=== PATIENT | female | born 1955 | race Caucasian/White ===

== ENCOUNTER 2019-05-05 08:58 | Inpatient (IN) | payer MEDICAID ==
[~2019-05-05] VITALS: Ht 154.9 cm; Wt 71.2 kg
[2019-05-05 08:59] VITALS: BP 174/76
--- NOTE | 2019-05-05 09:05 | NUR ---
Patient ambulated to bed 5 with family. RN evaluating patient at bedside.
--- NOTE | 2019-05-05 09:11 | NUR ---
EKG completed at bedside by EMT.
--- NOTE | 2019-05-05 09:14 | NUR ---
PT BIB SON WITH C/O CHEST PAIN X THIS AM. STATES PAIN RADIATING TO BACK, PAIN 10/10 AT THIS TIME. PT AA0X4. +BLURRY VISION, +NAUSEA, HAS DIFFICULTY IN BREATHING. PUT THE PT ON THE MONITOR, PUT ON O2 2L VIA NC. O2 SAT 100% AT THIS TIME, BS 185. ER MD TO SEE THE PT. EKG DONE AT THE BEDISE. PMH- DM, HTN. DENIES ANY ALLERGU TO MEDS
--- NOTE | 2019-05-05 09:23 | NUR ---
SELMA LERMA AT THE BEDSIDE ASSESSING PT.
[2019-05-05] MEDS ORDERED: ASPIRIN 325 MG TAB PO ONE (09:30)
[2019-05-05] MEDS: NITROGLYCERIN 0.4 MG TAB SL PRN ×3 (09:40→10:09)
[2019-05-05 09:44] LABS: BASOPHILS % (AUTO) 0.6 % (0.0-2.0); EOSINOPHILS % (AUTO) 0.3 % (0.0-4.0); HEMATOCRIT 42.9 % (36-48); HEMOGLOBIN 14.3 g/dL (12.0-16.0); LYMPHOCYTES # (AUTO) 1.3 K/uL (2.5-16.5); LYMPHOCYTES % (AUTO) 20.9 % (20.5-51.1); MEAN CORPUSCULAR HEMOGLOBIN 31 pg (27-31); MEAN CORPUSCULAR HGB CONC 33 g/dL (33-37); MEAN CORPUSCULAR VOLUME 91.7 fL (80-94); MONOCYTES # (AUTO) 0.3 K/uL (0.8-1.0); MONOCYTES % (AUTO) 4.6 % (1.7-9.3); NEUTROPHILS # (AUTO) 4.6 K/uL (1.8-7.7); NEUTROPHILS % (AUTO) 73.6 % (42.2-75.2); PLATELET COUNT (AUTO) 241 K/uL (140-450); RED BLOOD CELL COUNT(AUTO) 4.68 MIL/uL (4.20-5.40); RED CELL DISTRIBUTION WIDTH 13.5 % (11.6-13.7); WHITE BLOOD COUNT (AUTO) 6.2 K/uL (4.8-10.8)
[2019-05-05 09:50] LABS: ANION GAP 16.1 (8-16); CARBON DIOXIDE 27.2 mmol/L (21-32); CREATININE 0.7 mg/dL (0.6-1.3); POTASSIUM 4.3 mmol/L (3.5-5.1)
[2019-05-05 09:56] LABS: ALBUMIN 4.1 g/dL (3.4-5.0); TOTAL BILIRUBIN 0.5 mg/dL (0.0-1.0)
--- NOTE | 2019-05-05 09:59 | NUR ---
ADMINISTERED SECOND DOSE OF NNITROGLYCERINE ORDEREDE. PT HAS CHEST PAINJ 8/10 AT THIS TIME.
--- NOTE | 2019-05-05 10:00 | NUR ---
PT SON INFORMED OF PTS MED THAT ARE TAKEN AT HOME. FATHER TO BRING THE HOPME MEDS.
--- NOTE | 2019-05-05 10:09 | NUR ---
GAVE THIRD DOSE OF NITROGLYCERINE, PAIN 5/10 AT THIS TIME.
[2019-05-05] MEDS ORDERED: CLOPIDOGREL 75 MG TAB PO ONE (10:25)
[2019-05-05] MEDS ORDERED: ENOXAPARIN 60 MG/0.6 ML SYR SUBQ ONE (10:25)
[2019-05-05] MEDS ORDERED: HYDROcodone/APAP 5/325 MG 1 TAB TAB PO PRN (10:35)
[2019-05-05] MEDS ORDERED: ONDANSETRON 4 MG/2 ML VIAL IM/IVP PRN (10:35)
[2019-05-05] MEDS ORDERED: MORPHINE SULFATE 2 MG/ML SYR IVP PRN (10:35)
[2019-05-05] MEDS ORDERED: ACETAMINOPHEN 325 MG TAB PO PRN (10:35)
[2019-05-05 11:05] VITALS: BP 155/68
[2019-05-05] MEDS ORDERED: NITROGLYCERIN 0.4 MG TAB SL PRN (11:05)
--- NOTE | 2019-05-05 11:05 | NUR ---
PATIENT ARRIVED ON UNIT VIA GURNEY ACCOMPANIED BY ER NURSE AND FAMILY. PATIENT IS AAOX4, SPEAKS CYMRO AND ABLE TO UNDERSTAND MINIMAL MOHAWK. PATIENT IS ABLE TO MAKE NEED KNOWS AND FOLLOW SIMPLE COMMANDS. PATIENT IS VERY COOPERATIVE. RESPIRATION EVEN AND UNLABORED ON RA. DENIES ANY PAIN AND SOB AT THIS TIME. NO SIGNS OF DISTRESS NOTED. IV ON RAC 20G, CLEAN AND INTACT, SL. SKIN INTACT AND CLEAN. PATIENT IS ABLE TO AMBULATE WITH STEADY GAIT AND CONTINENT. ORIENTED PATIENT AND FAMILY TO THE ROOM. INSTRUCTED PATIENT AND FAMILY ON HOW TO USE THE CALL LIGHT, BED REMOTE, TELEPHONE, BATHROOM, LIGHT AND TV. ALL VERBALIZED UNDERSTANDING. DISCUSSED PLAN OF CARE WITH PATIENT AND FAMILY AT BEDSIDE, ALL VERBALIZED OK. COLLECTED MRSA NARES AND VITAL SIGNS TAKEN. TELE MONITOR APPLIED. SAFETY MEASURES IN PLACE. BED IN LOW POSITION AND CALL LIGHT WITHIN REACH. INSTRUCTED PATIENT AND FAMILY TO USE THE CALL LIGHT FOR ANY ASSISTANCE AND ALL WAS AWARE.
--- NOTE | 2019-05-05 11:05 | NUR ---
Patient will be admitted to care of . Admited to [facility] FLOOR. . Will go to room 106 A. Belongings list completed. Report to ANTHONY REYES .
[2019-05-05] MEDS: NACL 0.9% 1,000 ML IV SCH (11:11)
[2019-05-05 11:12] LABS: PROTHROMBIN TIME 9.9 secs (10.8-13.4)
[2019-05-05] MEDS ORDERED: HEPARIN PER PHARMACY MC PRN (11:15)
[2019-05-05] MEDS ORDERED: hePARIN / DEXT 5% PREMIX 250 ML IV SCH ×2 (11:15→23:00)
[2019-05-05 11:27] LABS: MAGNESIUM 1.6 mg/dL (1.8-2.4); PHOSPHORUS 2.7 mg/dL (2.5-4.9); THYROID STIMULATING HORMONE 6.36 uIU/mL (0.34-3.74)
[2019-05-05] MEDS ORDERED: LOSARTAN 25 MG TAB PO SCH (11:30)
--- NOTE | 2019-05-05 11:40 | NUR ---
DR AVENDANO IS ASSESSING PATIENT AT BEDSIDE. NO SIGNS OF DISTRESS NOTED. SAFETY MEASURES IN PLACE. BED IN LOW POSITION AND CALL LIGHT WITHIN REACH.
--- NOTE | 2019-05-05 12:01 | NUR ---
COLLECTED MRSA NARES AND URINE VIA VOID AND DELIVERED TO LAB.
[2019-05-05] MEDS ORDERED: MAG SULF 2000 MG/WATER PREMIX 50 ML IV SCH (13:00)
--- NOTE | 2019-05-05 13:10 | NUR ---
ADMINISTERED MG PER MD ORDER, PATIENT'S MG LEVEL 1.6, PATIENT TOLERATED WELL. PATIENT IS AWAKE AND TALKING TO THE BED B PATIENT. DENIED PAIN AND SOB. NO SIGNS OF DISTRESS NOTED. SAFETY MEASURES IN PLACE. TELE MONITOR ATTACHED. BED IN LOW POSITION AND CALL LIGHT WITHIN REACH. INSTRUCTED PATIENT TO USE THE CALL LIGHT FOR ANY ASSISTANCE AND PATIENT WAS AWARE.
[2019-05-05] MEDS ORDERED: ALBUTEROL SULFATE/IPRATROPIU 3 ML SOL IH PRN ×2 (13:50→15:35)
[2019-05-05] MEDS ORDERED: LORazepam 2 MG/ML VIAL IM/IVP PRN (13:50)
[2019-05-05 14:05] LABS: APPEARANCE,URINE HAZY (CLEAR); BILIRUBIN,URINE NEGATIVE (NEGATIVE); BLOOD, URINE NEGATIVE (NEGATIVE); COLOR,URINE YELLOW (YELLOW); LEUKOCYTE ESTERASE ,URINE NEGATIVE (NEGATIVE); NITRITE, URINE POSITIVE (NEGATIVE); PH,URINE 5.5 (5.0-9.0); UGLUCOSE NEGATIVE (NEGATIVE)
[2019-05-05 14:14] LABS: BARBITURATE, URINE NEG. ng/ml (NEG <=200); BENZODIAZEPINE, URINE NEG. ng/mL (NEG <=200); CANNABINOID, URINE NEG. ng/mL (NEG <=50); COCAINE, URINE NEG. ng/mL (NEG <=300); OPIATE, URINE NEG. ng/mL (NEG <=2000); PHENCYCLIDINE SCREEN,URINE NEG. ng/mL (NEG <=25)
[2019-05-05] MEDS ORDERED: FOLIC ACID 1 MG TAB PO SCH (14:23)
[2019-05-05] MEDS ORDERED: THIAMINE 200 MG/2 ML VIAL IM SCH (14:24)
[2019-05-05 14:28] LABS: RBC,URINE 0-5 /HPF (0-5); WBC,URINE 0-5 /HPF (0-5)
[2019-05-05] MEDS ORDERED: MULTIVITAMIN 1 TAB PO SCH ×2 (14:30)
--- NOTE | 2019-05-05 15:28 | NUR ---
REVIEWED PATIENT ASSESSMENT FOR BREATHING HHN THERAPY AND SUPPLEMENTAL OXYGEN WITH DR. Jayden AVENDANO SATURATION 98% ON ROOM AIR BPM 20 BREATHS SOUNDS CLEAR BILATERAL WITH EQUAL CHEST RISE PATIENT THROUGH PELLETIZER TENDER STATES THAT SHE USES AN ALBUTEROL INHALER AT HOME 2 PUFF IN AM AND PRN FOR SOB THROUGHOUT DAY/NIGHT
[2019-05-05 16:00] VITALS: BP 149/63
--- NOTE | 2019-05-05 16:15 | NUR ---
PATIENT COMPLAINED SHE HAS 5/10 PAIN AROUND HER ABDOMEN AREA, ADMINISTERED PRN PAIN MED NORCO, PATIENT TOLERATED WELL. PATIENT IS RESTING ON BED AT THIS TIME. NO SIGNS OF DISTRESS NOTED. SAFETY MEASURES IN PLACE. TELE MONITOR ATTACHED. BED IN LOW POSITION AND CALL LIGHT WITHIN REACH. INSTRUCTED PATIENT TO USE THE CALL LIGHT FOR ANY ASSISTANCE AND PATIENT WAS AWARE.
--- NOTE | 2019-05-05 16:50 | NUR ---
PATIENT IS TALKING TO MARGARITA GONZALEZ AT BEDSIDE. NO SIGNS OF DISTRESS NOTED. SAFETY MEASURES IN PLACE. TELE MONITOR ATTACHED. BED IN LOW POSITION AND CALL LIGHT WITHIN REACH. INSTRUCTED PATIENT TO USE THE CALL LIGHT FOR ANY ASSISTANCE AND PATIENT WAS AWARE. Addendum: 05/05/19 at 1736 by Mayda Bettencourt RN MARGARITA PEREZ
[2019-05-05] MEDS: chlordiazePOXIDE 25 MG CAP PO SCH (17:15)
--- NOTE | 2019-05-05 17:17 | NUR ---
ADMINISTERED MED PER MD ORDER, PATIENT TOLERATED WELL. MEDICATION EDUCATION PROVIDED TO PATIENT AND DAUGHTER CARLOS AT BEDSIDE. NO SIGNS OF DISTRESS NOTED. SAFETY MEASURES IN PLACE. TELE MONITOR ATTACHED. BED IN LOW POSITION AND CALL LIGHT WITHIN REACH. INSTRUCTED PATIENT TO USE THE CALL LIGHT FOR ANY ASSISTANCE AND PATIENT WAS AWARE.
--- NOTE | 2019-05-05 17:55 | NUR ---
RECEIVED CRITICAL LAB FOR TROPONIN 0.738. NOTIFIED DR OLIVEIRA AND DR OLIVEIRA WAS AWARE OF CRITICAL LAB VALUE OF TROPONIN. NO ORDER RECEIVED.
--- NOTE | 2019-05-05 19:07 | NUR ---
ENDORSED PATIENT TO ROLL HANDLER NURSE FOR CONTINUITY OF CARE. PATIENT IS IN STABLE CONDITION. SAFETY MEASURES IN PLACE. TELE MONITOR ATTACHED. BED IN LOW POSITION AND CALL LIGHT WITHIN REACH.
--- NOTE | 2019-05-05 19:09 | NUR ---
RECEIVED REPORT FROM AMY RN DAYSHIFT NURSE AT BEDSIDE FOR CONTINUITY OF CARE, PT IN STABLE CONDITION.
[2019-05-05] MEDS: ALBUTEROL SULFATE/IPRATROPIU 3 ML SOL IH SCH (19:21)
[2019-05-05] MEDS ORDERED: ALBUTEROL 0.083% 2.5 MG/3 ML NEBU INH SCH (19:30)
--- NOTE | 2019-05-05 19:30 | NUR ---
PT TAKING NEBULIZER TREATMENT.
[2019-05-05 20:00] VITALS: BP 124/55
[2019-05-05] MEDS: SIMVASTATIN 20 MG TAB PO SCH (20:44)
--- NOTE | 2019-05-05 21:00 | NUR ---
PT IN LOW BED WITH SIDE RAILS UP X2. HER BREATHING IS EVEN AND UNLABORED AND NO C/O OF PAIN VOICED BY PT. V/S FOLLOWS T 97.0 P 69 R 158 B/P 128/55 02 96% ON ROOM AIR. PT LUNGS CLEAR AND ABDOMEN SOFT. PT GIVEN ORDERED ZOCOR FOR HLD. VISITING FAMILY SAID THAT THEY HAD BEEN SPEAKING WITH PT REGARDING HER DAILY CRYING SPELLS AND IS ASKING WHAT THE PROCEDURE IS FOR GETTING ON A ANTI DEPRESSANT. WILL SPEAK WITH RESIDENT MD CONCERNING HER REQUEST.
--- NOTE | 2019-05-05 21:15 | NUR ---
MD ALVAREZ WENT TO PT BEDSIDE AND USING NIB INSPECTOR SYSTEM [employer] VIA TUBE COVERER MD BUNNY SPOKE WITH PT REGARDING HER CONCERNS WELL RISKS BENEFITS AND SIDE EFFECTS OF AN ANT DEPRESSANT. PT VERBALIZED UNDERSTANDING. MD FRITZ SAID THAT SHE WILL ORDER A MILD ANTI DEPRESSANT. AND ASKED THAT SHE WOULD FOLLOW UP OUT PATENT.
[2019-05-06] VITALS: BP 136/58
--- NOTE | 2019-05-06 00:30 | NUR ---
PT IN BED , SHE WAS REPOSITIONED IN BED. PT GIVEN HEPARIN BOLUS 4300 UNITS PER ORDER. PT ALSO STARTED ON HEPARIN GTT AT 850 UNITS PER ORDER. MEDICATION CO SIGNED BY GATE GUARDANTHONY HERNANDEZ. V/S FOLLOWS T 97.7 P 60 R 18 B/P 136/58 02 02 97% ON ROOM AIR. WILL ORDER LAB WORK TO REDRAW THE PT AND PTT. PT DENIES PAIN.
--- NOTE | 2019-05-06 03:03 | NUR ---
SPOKE WITH MD PALACIOS TO ADD FINGERSTICKS AND S/S DUE TO PT HAVING DM2 FINGERSTICK WAS TAKEN AND IT WAS 192, PT GIVEN 2 UNITS HUMALOG PER S/S.
[2019-05-06] MEDS: INSULIN LISPRO SLIDING SCALE 100 UNITS/ML VIAL SUBQ PRN ×4 (03:08→20:16)
[2019-05-06 04:00] VITALS: BP 181/76
[2019-05-06] MEDS: NACL 0.9% 1,000 ML IV SCH (04:06)
--- NOTE | 2019-05-06 04:59 | NUR ---
NEW IV SITE ON R HAND 22G INTACT AND FLUSHED PATENT FOR IV ABT. PT B/P IS 181/76. DR PALACIOS MADE AWARE.
--- NOTE | 2019-05-06 05:00 | NUR ---
PT IN BED NO S/S OF PAIN OR DISTRESS NOTED V/S FOLLOWS T 97.0 P 60 R 18 B/P 181/76.
--- NOTE | 2019-05-06 05:10 | NUR ---
SPOKE WITH , TOLD TO GIVEN AM MEDICATION 12.5MG OF COZZAR AND SHE WILL ALSO ADD AN ORDER FOR LOPRESSOR. PRADIP ENDORSE TO NEXT SHIFT TO HOLD COZAAR FOR THE AM SINCE IT WAS ALREADY GIVEN.
--- NOTE | 2019-05-06 05:19 | NUR ---
LOPRESSOR 12.5MG GIVEN WELL FOR HTN. WILL MONITOR FOR EFFECT.
--- NOTE | 2019-05-06 06:30 | NUR ---
PT FINGERSTICK IS 192, PT GIVEN 2 UNITS OF HUMALOG COVERAGE.
[2019-05-06] MEDS: ALBUTEROL SULFATE/IPRATROPIU 3 ML SOL IH SCH (06:43)
[2019-05-06] MEDS: BLOOD GLUCOSE MONITORING 1 DEV DEV FS SCH ×4 (06:48→20:13)
[2019-05-06] MEDS ORDERED: cloNIDine 0.1 MG TAB PO PRN (07:10)
--- NOTE | 2019-05-06 07:15 | NUR ---
CARE ENDORSED TO AMY RN DAYSHIFT AT BEDSIDE FOR CONTINUITY OF CARE, PT IN STABLE .
--- NOTE | 2019-05-06 07:17 | NUR ---
RECEIVED BEDSIDE REPORT FROM TAILOR GARMENT FITTER NURSE FOR CONTINUITY OF CARE. PATIENT IS RESTING ON BED A THIS TIME. PATIENT IS AAOX4, SPEAKS BULGARIAN AND ABLE TO UNDERSTAND MINIMAL AMHARIC. PATIENT IS ABLE TO MAKE NEED KNOWS AND FOLLOW SIMPLE COMMANDS. RESPIRATION EVEN AND UNLABORED ON RA. DENIES ANY PAIN AND SOB AT THIS TIME. NO SIGNS OF DISTRESS NOTED. IV ON RAC 20G, CLEAN AND INTACT, INFUSING AT PER MD ORDER. AND R HAND 22 G, CLEAN AND DRY, INFUSING HEPARIN DRIP AT THIS TIME. SKIN INTACT AND CLEAN. PATIENT IS ABLE TO AMBULATE WITH STEADY GAIT AND CONTINENT. DISCUSSED PLAN OF CARE WITH PATIENT AT BEDSIDE, PATIENT VERBALIZED OK. SAFETY MEASURES IN PLACE. BED IN LOW POSITION AND CALL LIGHT WITHIN REACH. INSTRUCTED PATIENT TO USE THE CALL LIGHT FOR ANY ASSISTANCE AND PATIENT WAS AWARE.
[2019-05-06 07:26] LABS: ANION GAP 10.8 (8-16); CARBON DIOXIDE 31.4 mmol/L (21-32); CREATININE 0.7 mg/dL (0.6-1.3); POTASSIUM 4.2 mmol/L (3.5-5.1)
[2019-05-06 07:35] LABS: BASOPHILS % (AUTO) 0.7 % (0.0-2.0); EOSINOPHILS # (AUTO) 0.1 K/uL (0-0.4); HEMATOCRIT 38.3 % (36-48); HEMOGLOBIN 12.6 g/dL (12.0-16.0); LYMPHOCYTES # (AUTO) 2.7 K/uL (2.5-16.5); MEAN CORPUSCULAR HEMOGLOBIN 31 pg (27-31); MEAN CORPUSCULAR HGB CONC 33 g/dL (33-37); MEAN CORPUSCULAR VOLUME 92.9 fL (80-94); MONOCYTES # (AUTO) 0.4 K/uL (0.8-1.0); MONOCYTES % (AUTO) 7.1 % (1.7-9.3); NEUTROPHILS # (AUTO) 2.2 K/uL (1.8-7.7); NEUTROPHILS % (AUTO) 40.2 % (42.2-75.2); PLATELET COUNT (AUTO) 218 K/uL (140-450); RED BLOOD CELL COUNT(AUTO) 4.12 MIL/uL (4.20-5.40); RED CELL DISTRIBUTION WIDTH 13.5 % (11.6-13.7); WHITE BLOOD COUNT (AUTO) 5.4 K/uL (4.8-10.8)
[2019-05-06 07:51] LABS: MAGNESIUM 1.9 mg/dL (1.8-2.4); PHOSPHORUS 3.2 mg/dL (2.5-4.9)
[2019-05-06 08:00] VITALS: BP 120/56
[2019-05-06 08:07] LABS: T4 (THYROXINE) 2.8 ug/dL (4.5-12.0)
--- NOTE | 2019-05-06 08:14 | NUR ---
RECEIVED CALL FROM LAB FOR PTT 63.9. VERIFIED AND CONFIRMED WITH HOSPITAL SOCIAL WORKER THAT HEPARIN DRIP WILL STAY AT SAME INFUSING RATE; NO ADJUSTMENT NEEDED.
[2019-05-06 08:44] LABS: CHOL/HDL RATIO 4.4 (1-4.5)
[2019-05-06] MEDS: ESCITALOPRAM 20 MG TAB PO SCH (08:47)
[2019-05-06] MEDS: ASPIRIN 81 MG TAB.CHEW PO SCH (08:48)
[2019-05-06] MEDS: chlordiazePOXIDE 25 MG CAP PO SCH (08:49)
[2019-05-06] MEDS: LOSARTAN 50 MG TAB PO SCH (08:55)
--- NOTE | 2019-05-06 08:58 | NUR ---
ADMINISTERED MEDS PER MD ORDER, PATIENT TOLERATED WELL. MEDICATION EDUCATION PROVIDED WITH [employer] COATING MACHINE OPERATOR CHEPE #[id number], PATIENT VERBALIZED UNDERSTANDING. PATIENT IS AWAKE AND SITTING UP ON BED. DENIED PAIN AND SOB. NO SIGNS OF DISTRESS NOTED. TELE MONITOR ATTACHED. SAFETY MEASURES IN PLACE. BED IN LOW POSITION AND CALL LIGHT WITHIN REACH. INSTRUCTED PATIENT TO USE THE CALL LIGHT FOR ANY ASSISTANCE AND PATIENT WAS AWARE.
[2019-05-06] MEDS ORDERED: LOSARTAN 25 MG TAB PO SCH (09:00)
[2019-05-06] MEDS ORDERED: THIAMINE 200 MG/2 ML VIAL IV SCH (09:00)
[2019-05-06] MEDS ORDERED: LACTOBACILLUS RHAMNOSUS GG 1 EACH CAP PO SCH (09:00)
[2019-05-06] MEDS ORDERED: METOPROLOL 50 MG TAB PO SCH (09:00)
[2019-05-06] MEDS ORDERED: MULTIVITAMIN 1 TAB PO SCH (09:00)
[2019-05-06] MEDS ORDERED: FOLIC ACID 1 MG TAB PO SCH (09:00)
[2019-05-06] MEDS ORDERED: THIAMINE 200 MG/2 ML VIAL IM SCH (09:00)
--- NOTE | 2019-05-06 09:33 | NUR ---
RECEIVED CALL FROM LAB FOR PTT 54.6. VERIFIED AND CONFIRMED WITH BELT LOOP CUTTER THAT HEPARIN DRIP WILL STAY AT SAME INFUSING RATE; NO ADJUSTMENT NEEDED.
--- NOTE | 2019-05-06 09:37 | NUR ---
PATIENT IS AWAKE AND WATCHING TV ON BED. RESPIRATION EVEN AND UNLABORED ON RA. DENIED PAIN. NO SIGNS OF DISTRESS NOTED. TELE MONITOR ATTACHED. SAFETY MEASURES IN PLACE. BED IN LOW POSITION AND CALL LIGHT WITHIN REACH. INSTRUCTED PATIENT TO USE THE CALL LIGHT FOR ANY ASSISTANCE AND PATIENT WAS AWARE.
--- NOTE | 2019-05-06 09:45 | NUR ---
RECEIVED CALL FROM LAB FOR TROPONIN 0.371. NOTIFIED DR RICH AND DR RICH WAS AWARE OF CRITICAL LAB VALUE FOR TROPONIN. NO ORDER RECEIVED.
--- NOTE | 2019-05-06 11:20 | NUR ---
DR RICH IS ASSESSING AND TALKING TO PATIENT AT BEDSIDE. NO SIGNS OF DISTRESS NOTED. PER DR RICH, DC HEPARIN DRIP STAT. DC PER MD ORDER. TELE MONITOR ATTACHED. SAFETY MEASURES IN PLACE. BED IN LOW POSITION AND CALL LIGHT WITHIN REACH. INSTRUCTED PATIENT TO USE THE CALL LIGHT FOR ANY ASSISTANCE AND PATIENT WAS AWARE.
[2019-05-06 12:00] VITALS: BP 132/50
--- NOTE | 2019-05-06 13:40 | NUR ---
PATIENT IS AWAKE AND RESTING ON BED. DENIED PAIN AND SOB. RESPIRATION EVEN AND UNLABORED ON RA. NO SIGNS OF DISTRESS NOTED. TELE MONITOR ATTACHED. SAFETY MEASURES IN PLACE. BED IN LOW POSITION AND CALL LIGHT WITHIN REACH. INSTRUCTED PATIENT TO USE THE CALL LIGHT FOR ANY ASSISTANCE AND PATIENT WAS AWARE.
--- NOTE | 2019-05-06 14:30 | NUR ---
PATIENT IS AWAKE AND TALKING TO RAY AT BEDSIDE. DENIED PAIN AND SOB. NO SIGNS OF DISTRESS NOTED. TELE MONITOR ATTACHED. SAFETY MEASURES IN PLACE. BED IN LOW POSITION AND CALL LIGHT WITHIN REACH. INSTRUCTED PATIENT TO USE THE CALL LIGHT FOR ANY ASSISTANCE AND PATIENT WAS AWARE.
--- NOTE | 2019-05-06 14:45 | NUR ---
PATIENT IS SITTING UP AND TALKING TO CHRISTY AT BEDSIDE. PER RAY, HE CAME STRAIGHT FROM WORK TO THE HOSPITAL AND HE DIDN'T BRING PATIENT'S HOME MEDS WITH HIM.TELE MONITOR ATTACHED. SAFETY MEASURES IN PLACE. BED IN LOW POSITION AND CALL LIGHT WITHIN REACH. INSTRUCTED PATIENT TO USE THE CALL LIGHT FOR ANY ASSISTANCE AND PATIENT WAS AWARE.
--- NOTE | 2019-05-06 15:20 | NUR ---
PATIENT IS SLEEPING AT THIS TIME. EVEN AND UNLABORED CHEST RISES NOTED. NO SIGNS OF DISTRESS. TELE MONITOR ATTACHED. SAFETY MEASURES IN PLACE. BED IN LOW POSITION AND CALL LIGHT WITHIN REACH.
[2019-05-06 16:00] VITALS: BP 141/66
--- NOTE | 2019-05-06 16:25 | NUR ---
CALLED PATIENT'S SON JANETT [phone] ON REGARDS OF PATIENT'S HOME MEDS. PER JANETT, HE WILL CALL HIS DAD AND HAVE HIM BRING THEM IN THIS EVENING.
--- NOTE | 2019-05-06 17:31 | NUR ---
PATIENT IS EATING DINNER ON BED AT THIS TIME. RESPIRATION EVEN AND UNLABORED ON RA. DENIED PAIN. NO SIGNS OF DISTRESS NOTED. TELE MONITOR ATTACHED. SAFETY MEASURES IN PLACE. BED IN LOW POSITION AND CALL LIGHT WITHIN REACH. INSTRUCTED PATIENT TO USE THE CALL LIGHT FOR ANY ASSISTANCE AND PATIENT WAS AWARE.
--- NOTE | 2019-05-06 18:39 | NUR ---
ADMINISTERED CEFTRIAXONE VIA IVPB PER MD ORDER, PATIENT TOLERATED WELL. PATIENT AWAKE AND WATCHING TV ON BED. RESPIRATION EVEN AND UNLABORED ON RA. DENIED PAIN. NO SIGNS OF DISTRESS NOTED. TELE MONITOR ATTACHED. SAFETY MEASURES IN PLACE. BED IN LOW POSITION AND CALL LIGHT WITHIN REACH. INSTRUCTED PATIENT TO USE THE CALL LIGHT FOR ANY ASSISTANCE AND PATIENT WAS AWARE.
--- NOTE | 2019-05-06 19:09 | NUR ---
ENDORSED PATIENT AT BEDSIDE TO MINES SAFETY ENGINEER NURSE FOR CONTINUITY CARE. PATIENT IS AWAKE AND WATCHING TV ON BED. NO SIGNS OF DISTRESS NOTED. PATIENT IS IN STABLE CONDITION. TELE MONITOR ATTACHED. BED IN LOW POSITION AND CALL LIGHT WITHIN REACH.
--- NOTE | 2019-05-06 19:10 | NUR ---
REPORT RECEIVED FROM AM NURSE AT BEDSIDE. PT IN STABLE CONDITION. AAOX4. INTRODUCED SELF TO PT. BOARD UPDATED. NO COMPLAINTS OF PAIN. NO SOB. AFEBRILE. PT IS AMBULATORY. IV SITE R AC 20G RUNNING NS@10ML/HR PATENT AND INTACT. SKIN WARM, DRY, AND INTACT WITH NO OPEN WOUNDS. BED LOCKED IN LOW POSITION. CALL CELIS WITHIN REACH. SAFETY PRECAUTION IN PLACE. ALL NEEDS MET AT THIS TIME.
[2019-05-06 20:00] VITALS: BP 125/42
--- NOTE | 2019-05-06 20:13 | NUR ---
ZOCOR GIVEN PO. BS 321. 8 UNITS OF HUMALOG GIVEN. PT TOLERATED WELL. METOPROLOL HELD. SAID TO CHECK HER BLOOD PRESSURE LATER TO SEE IF SHE NEEDS THE METOPROLOL.
[2019-05-06] MEDS: SIMVASTATIN 20 MG TAB PO SCH (20:15)
[2019-05-06] MEDS: METOPROLOL 25 MG TAB PO SCH (21:00)
--- NOTE | 2019-05-06 21:20 | NUR ---
PT SLEEPING COMFORTABLY IN BED. NO S/S OF DISTRESS NOTED. WILL CONTINUE TO MONITOR.
--- NOTE | 2019-05-06 23:45 | NUR ---
PT SLEEPING IN BED BUT AROUSABLE FOR VS. NO S/S OF DISTRESS NOTED. BP 134/63 HR 64. METOPROLOL WILL BE HELD. WILL CONTINUE TO MONITOR.
[2019-05-07] VITALS: BP 134/63
--- NOTE | 2019-05-07 01:30 | NUR ---
PT SLEEPING COMFORTABLY IN BED BUT AROUSABLE. NO S/S OF DISTRESS NOTED. NO COMPLAINTS OF PAIN. NO SOB. AFEBRILE. WILL CONTINUE TO MONITOR.
--- NOTE | 2019-05-07 03:15 | NUR ---
PT SLEEPING COMFORTABLY IN BED. NO S/S OF DISTRESS NOTED. WILL CONTINUE TO MONITOR.
[2019-05-07 04:00] VITALS: BP 141/70
[2019-05-07] MEDS: NACL 0.9% 1,000 ML IV SCH (04:07)
[2019-05-07] MEDS: BLOOD GLUCOSE MONITORING 1 DEV DEV FS SCH ×2 (05:15→12:08)
[2019-05-07] MEDS: INSULIN LISPRO SLIDING SCALE 100 UNITS/ML VIAL SUBQ PRN ×2 (05:17→12:10)
--- NOTE | 2019-05-07 05:19 | NUR ---
BS 192. 2 UNITS OF HUMALOG GIVEN. PT TOLERATED WELL.
--- NOTE | 2019-05-07 05:58 | NUR ---
PATIENT HAS BEEN SCREENED AND CATEGORIZED MODERATE NUTRITION RISK. PATIENT WILL BE SEEN WITHIN 3-5 DAYS OF ADMISSION. 05/08/19-05/10/19 RUSSELL VALDEZ MS, RDN
--- NOTE | 2019-05-07 07:18 | NUR ---
REPORT RECEIVED FROM AM NURSE AT BEDSIDE. PT IN STABLE CONDITION.
--- NOTE | 2019-05-07 07:19 | NUR ---
REPORT RECEIVED FROM PM NURSE AT BEDSIDE FOR CONTINUITY OF CARE. PT IN STABLE CONDITION. AAOX4, SLEEPING. BOARD UPDATED. NO COMPLAINTS OF PAIN. NO SOB. AFEBRILE. PT IS AMBULATORY. IV SITE R AC 20G RUNNING NS@10ML/HR PATENT AND INTACT. SKIN WARM, DRY, AND INTACT WITH NO OPEN WOUNDS. BED LOCKED IN LOW POSITION. CALL CELIS WITHIN REACH. SAFETY PRECAUTION IN PLACE. ALL NEEDS MET AT THIS TIME. WILL CONTINUE TO MONITOR PATIENT.
[2019-05-07 08:00] VITALS: BP 130/61
[2019-05-07 08:22] LABS: BASOPHILS % (AUTO) 0.7 % (0.0-2.0); EOSINOPHILS # (AUTO) 0.1 K/uL (0-0.4); EOSINOPHILS % (AUTO) 2.3 % (0.0-4.0); HEMATOCRIT 36.5 % (36-48); LYMPHOCYTES % (AUTO) 41.9 % (20.5-51.1); MEAN CORPUSCULAR HEMOGLOBIN 31 pg (27-31); MEAN CORPUSCULAR HGB CONC 33 g/dL (33-37); MEAN CORPUSCULAR VOLUME 93.1 fL (80-94); MONOCYTES # (AUTO) 0.3 K/uL (0.8-1.0); MONOCYTES % (AUTO) 7.1 % (1.7-9.3); NEUTROPHILS # (AUTO) 2.3 K/uL (1.8-7.7); PLATELET COUNT (AUTO) 202 K/uL (140-450); RED BLOOD CELL COUNT(AUTO) 3.92 MIL/uL (4.20-5.40); RED CELL DISTRIBUTION WIDTH 13.6 % (11.6-13.7); WHITE BLOOD COUNT (AUTO) 4.8 K/uL (4.8-10.8)
[2019-05-07] MEDS: METOPROLOL 25 MG TAB PO SCH (09:00)
[2019-05-07] MEDS ORDERED: LACTOBACILLUS RHAMNOSUS GG 1 EACH CAP PO SCH (09:00)
[2019-05-07 09:15] LABS: ANION GAP 15.4 (8-16); CARBON DIOXIDE 25.2 mmol/L (21-32); CREATININE 0.6 mg/dL (0.6-1.3); POTASSIUM 4.6 mmol/L (3.5-5.1)
[2019-05-07] MEDS ORDERED: LACT10CA PO (09:16)
[2019-05-07] MEDS ORDERED: LOSA50TA1 PO (09:16)
[2019-05-07] MEDS ORDERED: METF-350 PO (09:16)
[2019-05-07] MEDS ORDERED: SIMV20TA6 PO (09:16)
[2019-05-07] MEDS ORDERED: ASPI81CT95 PO (09:16)
[2019-05-07] MEDS ORDERED: ESCI20TA47 PO (09:16)
[2019-05-07] MEDS ORDERED: METO25TA PO (09:16)
[2019-05-07] MEDS: ASPIRIN 81 MG TAB.CHEW PO SCH (09:22)
[2019-05-07] MEDS: LOSARTAN 50 MG TAB PO SCH (09:22)
[2019-05-07] MEDS: ESCITALOPRAM 20 MG TAB PO SCH (09:22)
--- NOTE | 2019-05-07 09:24 | NUR ---
ORDERED MEDICATIONS GIVEN. PATIENT TOLERATED IT WELL. NO C/O OF PAIN AT THIS TIME. INFORMED PATIENT OF PENDING DISCHARGE ORDER. PATIENT VERBALIZED UNDERSTANDING. WILL CONTINUE TO MONITOR PATIENT.
[2019-05-07 09:25] LABS: MAGNESIUM 1.5 mg/dL (1.8-2.4); PHOSPHORUS 3.1 mg/dL (2.5-4.9)
[2019-05-07] MEDS ORDERED: PRAS1TAB3 PO (09:53)
[2019-05-07] MEDS ORDERED: MONT10TA35 PO (09:53)
[2019-05-07] MEDS ORDERED: SULF-58 PO (09:54)
--- NOTE | 2019-05-07 11:45 | NUR ---
DISCHARGE INSTRUCTION AND EDUCATION GIVEN TO PATIENT. PATIENT VERBALIZED UNDERSTANDING ABOUT PCP FOLLOWUP, TAKING ALL PRESCRIBED MEDICATIONS INSTRUCTED, AND SEEK HELP WITH ED IF SYMPTOMS WORSEN. ALL PAPERWORK SIGNED, IV REMOVED, PATIENT'S CALLED TO PICK HER UP. PATIENT CHANGED INTO HER OWN CLOTHING. TELE MONITOR REMOVED. WILL CONTINUE TO MONITOR PATIENT.
--- NOTE | 2019-05-07 12:10 | NUR ---
BLOOD SUGAR 195, COVERAGE GIVEN. PATIENT TOLERATED IT WELL. PATIENT CURRENTLY SITTING ON SIDE OF BED EATING LUNCH PRIOR TO BEING DISCHARGED. PATIENT IN STABLE CONDITION.
--- NOTE | 2019-05-07 12:20 | NUR ---
PATIENT AMBULATED OFF FLOOR WITH FAMILY MEMBERS. PATIENT IN STABLE CONDITION. PATIENT TOOK ALL HER BELONGINGS WITH HER.
[2019-05-29] MEDS ORDERED: METO25TA PO (17:30)
[2019-05-29] MEDS ORDERED: SIMV20TA1 PO (17:30)
[2019-05-29] MEDS ORDERED: LOSA50TA66 PO (17:30)
[2019-05-29] MEDS ORDERED: ESCI10TA PO (17:30)
[2019-05-29] MEDS ORDERED: METF850T PO (17:30)
[2019-06-01] MEDS ORDERED: SYN.05 PO (11:38)
[2019-06-01] MEDS ORDERED: OMEP20TC12 PO (17:30)
== END 2019-05-07 12:20 | disposition home or self-care (01) | DRG 243 ==
LOC: MED 08:58 → MTU 10:43
PROVIDERS: ADMIT General Practice; ATTEND General Practice
DX: K21.9 Gastro-esophageal reflux disease without esophagitis (principal); D68.69 Other thrombophilia; E11.69 Type 2 diabetes mellitus with other specified complication; E83.42 Hypomagnesemia; E03.9 Hypothyroidism, unspecified; E78.5 Hyperlipidemia, unspecified; F32.9 Major depressive disorder, single episode, unspecified; F41.9 Anxiety disorder, unspecified; I10 Essential (primary) hypertension; E66.3 Overweight; M94.0 Chondrocostal junction syndrome [Tietze]; N39.0 Urinary tract infection, site not specified; J45.909 Unspecified asthma, uncomplicated; F10.10 Alcohol abuse, uncomplicated; Z90.710 Acquired absence of both cervix and uterus; Z68.29 Body mass index [BMI] 29.0-29.9, adult
CPT/HCPCS: 36415; 71045; 80048; 80053; 80305; 81001; 82150; 82948; 83036; 83690; 83735; 83880; 84100; 84134; 84436; 84443; 84484; 85025; 85379; 85610; 85730; 87081; 87086; 93005; 94640; 96372; 99285; G0482; J0696; J1644; J1650; J3411; J3475; J7030; J7060; J7620